=== PATIENT | female | born 1980 | race Caucasian/White ===

== ENCOUNTER → 2020-06-18 17:04 | Outpatient (CLI) | payer BC, SELFPAY ==
--- NOTE | ~2020-06-18 | MM_ITS ---
EXAMINATION: MM screening kota BI w concetta HISTORY: Screening mammogram, family history of breast cancer in her mother. TECHNIQUE: Craniocaudal and mediolateral oblique 3-D tomosynthesis images were obtained and synthetic 2-D images were generated. CAD analysis was submitted and interpreted. COMPARISON: 09/21/2018 BREAST PARENCHYMAL COMPOSITION: There are scattered areas of fibroglandular density. FINDINGS: There is no evidence of suspicious mass, calcification, or architectural distortion to sugg est malignancy in either breast. There has been no suspicious interval change. IMPRESSION: 1. No mammographic evidence of malignancy. 2. Recommend routine screening mammography in one year. BI-RADS Category 1: Negative Reviewed, dictated and finalized at location A.
== END ==
PROVIDERS: Visit Provider Obstetrics & Gynecology
DX: Z12.31 Encounter for screening mammogram for malignant neoplasm of breast (principal)
CPT/HCPCS: 77063; 77067

== ENCOUNTER 2022-02-13 14:36 | Emergency (ER) | payer OTHER, BC, SELFPAY ==
[2022-02-13 14:10] VITALS: BP 149/73; PULSE 120; RESP 5; TEMP 36.4; O2SAT 100
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
[2022-02-13] MEDS: NAPROXEN 500 MG TABLET PO (17:41)
[2022-02-13] MEDS: ACETAMINOPHEN 500 MG TABLET 1000 MG PO (17:42)
== END 2022-02-13 17:47 | disposition home or self-care (01) ==
PROVIDERS: Emergency Provider Emergency Medicine
DX: S16.1XXA Strain of muscle, fascia and tendon at neck level, initial encounter (principal); S39.012A Strain of muscle, fascia and tendon of lower back, initial encounter; V43.52XA Car driver injured in collision with other type car in traffic accident, initial encounter
CPT/HCPCS: 99283; A9270

== ENCOUNTER 2022-09-24 00:27 | Day surgery (SDC) | payer BC, SELFPAY ==
[2022-09-15 14:12] VITALS: BMI 41.3
[2022-09-24 07:44] VITALS: BP 113/92; PULSE 100; RESP 16; TEMP 36.2; O2SAT 100; BMI 40.6
[2022-09-24] MEDS: LACTATED RINGERS 1,000 ML 150 ML IV CONT (08:07)
[2022-09-24] MEDS: ONDANSETRON INJ 4 MG/2 ML VIAL IV PUSH (08:07)
--- NOTE | 2022-09-24 08:07 | WPDANESEPPF ---
Anes - Initial Pre Proc Eval Procedure: Operation Date: 09/24/22 08:30 Proposed Procedures p Colonoscopy - Jeevan Hernandez MD Date/Time: 09/24/22 08:07 Surgeon: Jeevan Hernandez MD Pre Op Diagnosis: melena Patient Data Age: 42 Gender: F Height: 1.5 m Weight: 91.3 kg Last Vital Signs Temp 97.2 F L 09/24/22 07:44 Pulse 100 09/24/22 07:44 Resp 16 09/24/22 07:44 BP 113/92 H 09/24/22 07:44 Pulse Ox 100 09/24/22 07:44 O2 Del Method Room Air 09/24/22 07:44 Allergies Allergy/AdvReac Type Severity Reaction Status Date / Time Penicillins Allergy Severe throat Verified 09/24/22 07:43 swells Home Medications Medication Instructions Recorded Confirmed Type cyclobenzaprine 10 mg tablet 10 mg PO TID PRN muscle spasm #20 02/13/22 09/24/22 Rx tabs dextroamphetamine-amphetamine 5 mg 5 mg PO DAILY 08/24/22 09/24/22 History tablet (Adderall) semaglutide (weight loss) 1 mg/0.5 1 mg subcut WEEKLY 08/24/22 09/24/22 History mL subcutaneous pen injector (Wegovy) rimegepant 75 mg disintegrating 75 mg PO EVERY OTHER DAY 09/15/22 09/24/22 History tablet (Nurtec ODT) Patient hx anesthesia problems: none Family hx anesthesia problems: none Results Review: All pre-operative results and documents have been reviewed as part of the pre-operative evaluation. [facility] Past Medical History Medical History (Updated 08/24/22 @ 15:55 by Denisse Solomon APRN) External hemorrhoids Hematochezia Mixed irritable bowel syndrome Obesity Social History Social History Smoking status: Never smoker Alcohol intake: never Substance use: never Substance use type: does not use Living arrangements: with family Spiritual care concerns: No Anes - Eval Final PreProcedure Day of Procedure 09/24/22 08:07 Patient weight: morbidly obese Heart: regular rate and rhythm Lungs: clear to auscultation Airway: Mallampati scale class II Neurological: alert and oriented Last oral intake: >/= 8 hours ASA classification: III Emergent: no Anesthetic plan: proceed Anesthesia type and monitoring: general GIVS and standard monitoring Results Review: All pre-operative results and documents have been reviewed as part of the pre-operative evaluation. Informed Consent: The patient's anesthetic plan and its attendant risks and benefits were discussed with the patient/family/POA. Questions were solicited and answers provided to the satisfaction of the patient/family/POA.
--- NOTE | 2022-09-24 08:20 | PM.HPGS ---
History of Present Illness History of Present Illness Consent: Risks, benefits, and alternatives have been discussed and questions answered. Patient agrees to proceed with procedure. Chief complaint: melena Narrative: Leigh Alejandro is a 42 year old female with intermittent rectal bleeding probably from hemorrhoids but never had colonoscopy Review of Systems Constitutional: Constitutional: Denies headache(s) and Denies weakness Eyes: Eyes: Denies blurry vision ENT: Reports Normal hearing present, Denies headache(s) and Denies neck pain Cardiovascular: Cardiovascular: Denies chest pain and Denies dyspnea Respiratory: Respiratory: Denies dyspnea Gastrointestinal: Gastrointestinal: Reports no additional gastrointestinal complaints Genitourinary: Genitourinary: Denies dysuria Musculoskeletal: Musculoskeletal: Denies neck pain Integumentary/Breasts: Skin/Breast: Denies dry skin Neurologic: Reports Normal hearing present, Denies headache(s) and Denies weakness Psychiatric: Psychiatric: Denies anxiety Endocrine: Endocrine: Denies change in body appearance Hematologic/Lymphatic: Hematologic/Lymphatic: Denies easy bleeding Allergic/Immunologic: Allergic/Immunologic: Denies urticaria PMFSH Past Medical History Medical History (Updated 08/24/22 @ 15:55 by Denisse Solomon APRN) External hemorrhoids Hematochezia Mixed irritable bowel syndrome Obesity Social History Social History Smoking status: Never smoker Alcohol intake: never Substance use: never Substance use type: does not use Living arrangements: with family Spiritual care concerns: No Meds Home Medications and Allergies Home Medications Medication Instructions Recorded Confirmed Type cyclobenzaprine 10 mg tablet 10 mg PO TID PRN muscle spasm #20 02/13/22 09/24/22 Rx tabs dextroamphetamine-amphetamine 5 mg 5 mg PO DAILY 08/24/22 09/24/22 History tablet (Adderall) semaglutide (weight loss) 1 mg/0.5 1 mg subcut WEEKLY 08/24/22 09/24/22 History mL subcutaneous pen injector (Wegovy) rimegepant 75 mg disintegrating 75 mg PO EVERY OTHER DAY 09/15/22 09/24/22 History tablet (Nurtec ODT) Allergies Allergy/AdvReac Type Severity Reaction Status Date / Time Penicillins Allergy Severe throat Verified 09/24/22 07:43 swells Vital Signs Vital Signs - 24 hr 09/24/22 07:44 Temperature 97.2 F L Pulse Rate 100 Respiratory Rate 16 Blood Pressure 113/92 H Pulse Oximetry 100 Oxygen Delivery Room Air Exam Const: General: comfortable and no acute distress HENMT: Face/Nose/Sinus: Normal nares present Eyes: General: appearance normal, both eyes and all related structures Neck: Neck: no JVD Resp: Auscultation: clear to auscultation bilaterally Cardio: Rate: regular rate Rhythm: regular rhythm GI: Inspection: non-distended GI Palp: Yes Soft to palpation Skin: General skin exam: normal color Neuro: General: gait normal Speech: normal speech Extrem: General: normal to inspection Psych: Mental Status: mental status grossly normal Assessment and Plan Assessment and plan (1) Hematochezia: Code(s): K92.1 - Melena Status: Acute Assessment and Plan: colonoscopy (2) External hemorrhoids: Code(s): K64.4 - Residual hemorrhoidal skin tags Status: Acute
[2022-09-24 08:43] VITALS: BP 98/61; PULSE 90; RESP 18; O2SAT 98
[2022-09-24 08:53] VITALS: BP 89/53; PULSE 88; RESP 18; O2SAT 100
[2022-09-24 09:03] VITALS: BP 115/63; PULSE 76; RESP 18; O2SAT 100
== END 2022-09-24 09:11 | disposition home or self-care (01) ==
PROVIDERS: PCP Family Medicine; Visit Provider Internal Medicine Gastroenterology
PROC: 0DJD8ZZ Inspection of Lower Intestinal Tract, Via Natural or Artificial Opening Endoscopic (ICD-10-PCS; CPT 45378; principal; 2022-09-24 08:30)
DX: Z12.11 Encounter for screening for malignant neoplasm of colon (principal); K64.8 Other hemorrhoids; K64.4 Residual hemorrhoidal skin tags; E66.01 Morbid (severe) obesity due to excess calories; Z68.41 Body mass index [BMI] 40.0-44.9, adult; Z79.899 Other long term (current) drug therapy
CPT/HCPCS: 45378; J2001; J2405; J2704; J7120

== ENCOUNTER → 2023-02-01 16:08 | Outpatient (CLI) | payer BC, SELFPAY ==
--- NOTE | ~2023-02-01 | MM_ITS ---
EXAMINATION: MM screening kota BI w concetta HISTORY: Screening mammogram, family history of breast cancer in her mother. TECHNIQUE: Craniocaudal and mediolateral oblique 3-D tomosynthesis images were obtained and synthetic 2-D images were generated. CAD analysis was submitted and interpreted. COMPARISON: 06/18/2020, 09/21/2018 BREAST PARENCHYMAL COMPOSITION: There are scattered areas of fibroglandular density. FINDINGS: No suspicious mass, calcification, or architectural distortion are identified in either [place] to suggest malignancy. There has been no suspicious interval change. IMPRESSION: 1. No mammographic evidence of malignancy. 2. Recommend routine screening mammography in one year. BI-RADS Category 1: Negative Reviewed, dictated and finalized at location A. REPAIRER
== END ==
PROVIDERS: PCP Nurse Practitioner; Visit Provider Nurse Practitioner
DX: Z12.31 Encounter for screening mammogram for malignant neoplasm of breast (principal)
CPT/HCPCS: 77063; 77067

== ENCOUNTER 2024-02-06 15:33 | Outpatient (CLI) | payer BC, SELFPAY ==
--- NOTE | ~2024-02-06 | MM_ITS ---
EXAMINATION: MM screening kota BI w concetta HISTORY: Screening TECHNIQUE: Craniocaudal and mediolateral oblique 3-D tomosynthesis images were obtained and synthetic 2-D images were generated. CAD analysis was submitted and interpreted. COMPARISON: Comparison to multiple prior studies sequentially, with oldest reviewed study dated 06/2022. BREAST PARENCHYMAL COMPOSITION: Not dense: There are scattered areas of fibroglandular density. FINDINGS: There is no evidence of suspicious mass, calcification, or architectural distortion to sugg est malignancy in either breast. There has been no suspicious interval change. IMPRESSION: 1. No mammographic evidence of malignancy. 2. Recommend routine screening mammography in one year. BI-RADS Category 1: Negative Reviewed, dictated and finalized at location B. R SCHOOL CAREGIVER
== END 2024-02-06 15:34 | disposition home or self-care (01) ==
LOC: MICIMG 15:33
PROVIDERS: PCP Nurse Practitioner; Visit Provider Nurse Practitioner
DX: Z12.31 Encounter for screening mammogram for malignant neoplasm of breast (principal)
CPT/HCPCS: 77063; 77067

== ENCOUNTER 2025-01-21 08:46 | Outpatient (CLI) | payer BC, SELFPAY ==
--- NOTE | ~2025-01-21 | DEXA_ITS ---
Bone Density Report Name: HUGO GRAHAM Age: 44 Sex: Female Ethnicity: White Date of : 1980 Indication: postmenopausal; Referring Provider: ROZINA, BRIDGET Meng Study: Bone densitometry was performed. Exam Date: January 21, 2025 Accession number: [id number] Bone Density: Region BMD T-score Z-score Classification AP Spine(L1-L4) 0.981 -0.6 -0.2 Normal Femoral Neck (Left) 0.641 -1.9 -1.5 Osteopenia Total Hip (Left) 0.791 -1.2 -1.0 Osteopenia Femoral Neck (Right) 0.652 -1.8 -1.4 Osteopenia Total Hip (Right) 0.788 -1.3 -1.0 Osteopenia Total Hip Mean 0.790 -1.3 -1.0 Osteopenia World Health Organization criteria for BMD impression classify patients as: Normal (T-score at or above -1.0), Osteopenia (T-score between -1.0 and -2.5), or Osteoporosis (T-score at or below -2.5). 10-year Fracture Risk(1): Major Osteoporotic Fracture 3.2% Hip Fracture 0.4% Reported Risk Factors: [place] (), Neck BMD=0.641, BMI=31.0 (1) FRAX(R) Version 3.08. Fracture probability calculated for an untreated patient. Fracture probability may be lower if the patient has received treatment. Clinical Information Provided by Patient: Has used the following medications: HRT (i.e. estrogen/hormone therapy), Vitamin D, Calcium Patient maximum height was 60 Menopause Age: 41 Drinks caffeinated beverages Onset of menses at age 17 Number of children 1 Missed period for more than 6 months in a row Impression: The patient has low bone mass, based on the Left Femoral Neck T-score. The patient has an estimated ten-year risk of hip fracture of 0.4% and an estimated ten-year risk of major fracture of 3.2%, based on the WHO FRAX algorithm. Discussion: BONE DENSITY IS LOW AT ONE OR MORE SKELETAL SITES. This patient's lowest T-score is low at one or more skeletal sites. It meets the World Health Organization's (WHO) criteria for ?low bone mass? (T-score between -1.0 and -2.5). The patient's 10-year risk of fracture as calculated by FRAX is less than the threshold where pharmacological therapy is recommended by the National Osteoporosis Foundation (NOF). However, all treatment decisions require clinical judgment and consideration of individual patient factors, including patient preferences, comorbidities, previous drug use, risk factors not captured in the FRAX model (e.g., frailty, falls, vitamin D deficiency, increased bone turnover, interval significant decline in bone density) and possible under or overestimation of fracture risk by FRAX. The patient should follow a healthful lifestyle (good nutrition with adequate calcium and vitamin D, and appropriate weight-bearing exercise). Follow-Up: Consider repeating this study in 2 to 3 years to reassess this patient's status, or sooner if there is some new clinical indication. Reported by: ALEJANDRO on 01/21/2025 9:10:00 AM. Reviewed, dictated and finalized at location A.
== END 2025-01-21 08:47 | disposition home or self-care (01) ==
LOC: MICIMG 08:47
PROVIDERS: PCP Obstetrics & Gynecology Gynecology; Visit Provider Nurse Practitioner Family
DX: Z13.820 Encounter for screening for osteoporosis (principal); M85.852 Other specified disorders of bone density and structure, left thigh; M85.851 Other specified disorders of bone density and structure, right thigh
CPT/HCPCS: 77080

== ENCOUNTER 2025-02-12 07:57 | Outpatient (CLI) | payer BC, SELFPAY ==
--- NOTE | ~2025-02-12 | MM_ITS ---
EXAMINATION: MM screening kota BI w concetta HISTORY: Screening TECHNIQUE: Craniocaudal and mediolateral oblique 3-D tomosynthesis images were obtained and synthetic 2-D images were generated. CAD analysis was submitted and interpreted. COMPARISON: Comparison to multiple prior studies sequentially, with oldest reviewed study dated , 09/21/2018 BREAST PARENCHYMAL COMPOSITION: Not Dense: The breasts are almost entirely fatty. FINDINGS: There is no evidence of suspicious mass, calcification, or architectural distortion to suggest malignancy in either breast. IMPRESSION: 1. No mammographic evidence of malignancy. 2. Recommend routine screening mammography in one year. BI-RADS Category 1: Negative Reviewed, dictated and finalized at location A. LIANCE CLERK
== END 2025-02-12 07:58 | disposition home or self-care (01) ==
LOC: MICIMG 07:57
PROVIDERS: PCP Obstetrics & Gynecology Gynecology; Visit Provider Obstetrics & Gynecology Gynecology
DX: Z12.31 Encounter for screening mammogram for malignant neoplasm of breast (principal)
CPT/HCPCS: 77063; 77067